=== PATIENT | male | born 1950 | race Caucasian/White ===

== ENCOUNTER → 2017-08-21 | Outpatient (CLI) | payer OTHER ==
[~2017-08-21] MED LIST: ASPIR 8181 MG PO; AVELOX ABC PAC400 MG PO; CALCIUM 600 +1 EAC1 PO; CHONDROITIN SU250 MG PO; FISH OIL500 MG PO; LEVAQUIN 750 M750 MG PO; LEVOTHYROXINE 0.1 MG PO; MULTIVITAMINS PO; NIACIN50 MG PO; PRAVACHOL40 MG PO; PREDNISONE 10 M10 MG PO; SAW PALMETTO80 MG PO; TESSALON PERLE100 M1 PO; TRAMADOL 50 MG50 MG PO; UROCIT-K10 ME1 PO
== END ==
LOC: M.MRI 06:54
DX: M47.22 Other spondylosis with radiculopathy, cervical region (principal); G89.29 Other chronic pain; M50.10 Cervical disc disorder with radiculopathy, unspecified cervical region

== ENCOUNTER → 2017-08-31 | Outpatient (CLI) | payer OTHER ==
[2017-08-31 07:42] LABS: CREATININE 1.1 mg/dL (0.6-1.3)
== END ==
LOC: M.LAB 07:05 → M.MRI 08:30
PROVIDERS: Nurse Practitioner Family
DX: M47.812 Spondylosis without myelopathy or radiculopathy, cervical region (principal); R93.8 Abnormal findings on diagnostic imaging of other specified body structures